=== PATIENT | female | born 2000 | race Caucasian/White ===

== ENCOUNTER 2022-12-15 06:25 | Day surgery (SDC) | payer SELFPAY ==
[2022-12-09 10:16] VITALS: BMI 21.2
[2022-12-15] MEDS ORDERED: BUPIVACAINE HCL/PF 2.5 MG/ML - 30 ML VIAL IJ ONE (07:15)
[2022-12-15] MEDS ORDERED: LIDOCAINE 1%-EPI 1:100,000 30 ML MDV IJ ONE (07:15)
[2022-12-15] MEDS ORDERED: BUPIVACAINE HCL/PF 0.25% (2.5MG/ML) 10 ML VIAL ONE (07:15)
[2022-12-15] MEDS ORDERED: BACITRACIN ZINC 15 GM TUBE TOPICAL OINTMENT ONE (07:15)
[2022-12-15] MEDS ORDERED: LIDOCAINE HCL/PF 2% SDV 5ML VIAL ONE (07:27)
[2022-12-15] MEDS ORDERED: ONDANSETRON 4 MG/2 ML VIAL ONE (07:27)
[2022-12-15] MEDS ORDERED: PROPOFOL 40 ML ONE (07:27)
[2022-12-15] MEDS ORDERED: MIDAZOLAM HCL 2 MG/2 ML SINGLE DOSE VIAL ONE (07:27)
[2022-12-15] MEDS ORDERED: DEXAMETHASONE SOD PHOSPHATE 4 MG/1 ML VIAL ONE (07:27)
[2022-12-15] MEDS ORDERED: oxyCODONE HCL 5 MG TABLET PO PRN (07:58)
[2022-12-15] MEDS ORDERED: ONDANSETRON 4 MG/2 ML VIAL IVPUSH PRN (07:58)
[2022-12-15] MEDS ORDERED: LACTATED RINGERS SOLUTION 1,000 ML IV SCH (08:00)
[2022-12-15] MEDS ORDERED: ACETAMINOPHEN INJECTION 100 ML IVPB ONE (08:03)
[2022-12-15] MEDS ORDERED: FAMOTIDINE 20 MG/50 ML IVPB 20 MG/50 ML MG IVPB ONE (08:03)
[2022-12-15 11:40] VITALS: TEMP 98.5
[2022-12-15 12:53] VITALS: RESP 18
[2022-12-15 12:55] VITALS: BP 111/66; PULSE 73
== END 2022-12-15 12:45 | disposition home or self-care (01) ==
LOC: FASU 06:25
PROVIDERS: ATTEND Surgery
CPT/HCPCS: 81025; 94760